=== PATIENT | male | born 1990 | race African-American/Black ===

== ENCOUNTER 2017-05-11 10:25 | Emergency (ER) | payer MEDICARE ==
[2017-05-11 11:39] LABS: APPEARANCE SLT CLOUDY (CLEAR); BACTERIA FEW /hpf (NONE SEEN); BILIRUBIN NEGATIVE (NEGATIVE); COLOR YELLOW (YELLOW); EPITHELIAL CELLS RARE /hpf (0-5); GLUCOSE NEGATIVE (NEGATIVE); KETONE NEGATIVE (NEGATIVE); NITRITE NEGATIVE (NEGATIVE); PROTEIN NEGATIVE (NEGATIVE); RED CELLS - URINE RARE /hpf (0-5); UROBILINOGEN NORMAL (NORMAL); WHITE CELLS - URINE >50 /hpf (0-5)
[2017-05-11 11:40] LABS: MUCUS <1+ /lpf (NONE SEEN)
== END 2017-05-11 12:32 | disposition home or self-care (01) ==
LOC: D.ER 10:25
PROVIDERS: Emergency Medicine
DX: N34.2 Other urethritis (principal); R30.0 Dysuria; H61.21 Impacted cerumen, right ear